=== PATIENT | male | born 1965 ===

== ENCOUNTER 2018-04-15 21:12 | Emergency (ER) | payer BC, OTHER ==
[2018-04-15 21:20] VITALS: TEMP 98.1
--- NOTE | 2018-04-15 22:28 | ED PDOC ---
HPI: Psych/Substance Abuse Time Seen by Provider: 04/15/18 21:44 Chief Complaint (Nursing): Alcohol Ingestion Chief Complaint (Provider): etoh History Per: Patient, EMS Additional Complaint(s): 53 y/o male brought in by EMS for alcohol intoxication. Patient states he had a few drinks tonight [place] and then was picked up by EMS and brought here. PAtient awake, alert, oriented x3. Denies acute medical or psychiatric complaints. Past Medical History Reviewed: Historical Data, Nursing Documentation, Vital Signs Vital Signs: Last Vital Signs Temp 98.1 F 04/15/18 21:17 Pulse 112 H 04/15/18 21:17 Resp BP 160/109 H 04/15/18 21:17 Pulse Ox 95 04/15/18 21:17 - Medical History PMH: No Chronic Diseases - Surgical History Surgical History: No Surg Hx - Family History Family History: States: No Known Family Hx - Allergies Allergies/Adverse Reactions: Allergies Allergy/AdvReac Type Severity Reaction Status Date / Time No Known Allergies Allergy Verified 04/15/18 21:17 Review of Systems ROS Statement: Except As Marked, All Systems Reviewed And Found Negative Physical Exam - Reviewed Nursing Documentation Reviewed: Yes Vital Signs Reviewed: Yes - Physical Exam Appears: Positive for: Well, Non-toxic, No Acute Distress Head Exam: Positive for: ATRAUMATIC, NORMAL INSPECTION, NORMOCEPHALIC Skin: Positive for: Normal Color Eye Exam: Positive for: Normal appearance Cardiovascular/Chest: Positive for: Regular Rate, Rhythm Respiratory: Positive for: Normal Breath Sounds Gastrointestinal/Abdominal: Positive for: Normal Exam Back: Positive for: Normal Inspection Extremity: Positive for: Normal ROM Neurologic/Psych: Positive for: Alert, Oriented (x3) - ECG O2 Sat by Pulse Oximetry: 95 - Progress ED Course And Treament: Patient AAOx3, ambulating steady gait Patient requires no further intervention in the ED and is stable for discharge at this time Disposition - Clinical Impression Clinical Impression: Alcohol intoxication - Patient ED Disposition Is Patient to be Admitted: No Counseled Patient/Family Regarding: Diagnosis, Need For Followup - Disposition Disposition: Routine/Home Disposition Time: 22:16 Condition: STABLE Instructions: Alcohol Use - When Is Drinking a Problem?
[2018-04-15 22:54] VITALS: BP 142/94; PULSE 97; RESP 18; O2SAT 97
== END 2018-04-15 22:16 | disposition home or self-care (01) ==
LOC: H.ER 21:12
DX: F10.129 Alcohol abuse with intoxication, unspecified (principal)